=== PATIENT | male | born 1935 | race Caucasian/White ===

== ENCOUNTER 2017-12-12 08:12 | Inpatient (IN) ==
[2017-12-12] MEDS ORDERED: Sodium Chlor 0.9% Inj 500 ML IV.SIG PRN (08:45)
[2017-12-12] MEDS ORDERED: Chlorhexidine Gluconate 2% 1 Pack (2 Cloths) TOPICAL PRN (08:45)
[2017-12-12] MEDS ORDERED: Metoprolol Tartrate 25 MG Tablet PO PRN (08:45)
[2017-12-12] MEDS ORDERED: Vancomycin Inj 1,000 MG in Sodium Chlor 0.9% Inj 250 ML IV.SIG SCH (09:00)
[2017-12-12] MEDS ORDERED: Sod Chloride 0.9% Inj 1,000 ML IV.SIG SCH (09:00)
[2017-12-12] MEDS ORDERED: Thrombin Topical Soln 5,000 UNIT Vial TOPICAL ONE (09:56)
[2017-12-12] MEDS ORDERED: Gelatin Size 100 Topical Foam ONE (09:56)
[2017-12-12] MEDS ORDERED: Hypromellose 0.3% Opth Gel 10 GM Bottle ONE (10:10)
[2017-12-12] MEDS ORDERED: Ketamine Inj 500 MG/10 ML Vial ONE (10:11)
[2017-12-12] MEDS ORDERED: fentaNYL Citrate Inj 100 MCG/2 ML Ampul ONE ×2 (10:25→16:00)
[2017-12-12] MEDS ORDERED: Bisacodyl 10 MG Supp RECTAL PRN (11:02)
[2017-12-12] MEDS ORDERED: ceFAZolin 2 GM Premix Inj 2 GM/50 ML PIGGYBACK IV.SIG ONE (11:18)
--- NOTE | 2017-12-12 15:40 | XR ---
EXAM DATE: 12/12/2017 3:37 PM EDT AGE/SEX: 82 years / Male INDICATIONS: Cervical fusion, C3-4, 4-5, 5-6. CLINICAL DATA: This is the patient's initial encounter. Patient reports that signs and symptoms have been present for 1 day and indicates a pain score of Nonresponsive. MEDICAL/SURGICAL HISTORY: Non-responsive. Non-responsive. COMPARISON: No prior exams available for comparison. FINDINGS: There is anterior cervical fusion with a plate anteriorly from C3-C6. The vertebral bodies are normal in alignment on the lateral view. CONCLUSION: Postsurgical changes as above. Electronically signed by: Júnior Dover MD 12/12/2017 3:38 PM EDT
--- NOTE | 2017-12-12 16:14 | P.OP ---
Preoperative Diagnosis: Cervical stenosis with myelopathy Postoperative Diagnosis: Cervical stenosis with myelopathy Date of procedure: 12/12/17 Procedure: C3-4 C4-5 and C5-C6 anterior cervical discectomy, interbody arthrodesis using peek cage filled with autologous bone graft, C3 4, C4 5 C5-6 instrumented fixation using simplicity plate and screws Anesthesia: ARACELY Surgeon: Hakan Joyner MD Slip Maker: Deirdre Montenegro Pathology: none sent Operation and Findings: INDICATIONS FOR THE PROCEDURE Mr. 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 He was found to have significant spndylosis with stenosis. She has failed maximum nonsurgical management including multiple modalities of conservative treatment as well as pain management interventions by an interventional pain specialist. A surgical decompression and arthrodhesis were indicated. The qllt-zf-tish details of the procedure, indications, alternatives, risks and potential complications were fully discussed with the patient. The patient fully understood. All The questions were answered. No guarantees were given. The patient voiced requesting the procedure and provided informed consents. The patient was offered the alternative of delaying the procedure and continuing with nonsurgical management. DETAILS OF THE SURGICAL PROCEDURE After the induction of general anesthesia, endotracheal intubation was performed. A Mercedes catheter, bilateral LUIS hose, and sequential compression devices were placed and kept throughout the procedure. Placement of electrodes for neurophysiological monitoring of the somatosensorial evoked potentials. motor evoked potentials, and EMG as well as laryngeal nerve monitoring was achieved. The patient was positioned supine on a John table with the head over a gel doughnut. All pressure points were carefully padded with eggcrate mattress. The eyes were tapped shut after ointment was applied by the anesthesiologist to prevent corneal abrasion. A Michael hugger was placed over the exposed lower body to maintain control of the core body temperature. The electrophysiological team placed the needles and electrodes in their proper location and baseline SSEP's and motor evoked potentials were registered prior and after positioning and endotracheal intubation. The anterior cervical region was prepped and draped in the usual sterile fashion. A localizing x-ray was performed with a C-arm. The surgical procedure was performed in several steps as follow: SURGICAL APPROACH A skin incision was made along the medial cervical crease with a #10 blade. The dissection was carried out through the platysma exposing the sternocleidomastoid muscle. The cervical spine was approached following the fascial layers of the neck just medial to the anterior border of the sternocleidomastoid and carotid sheath by a combination of sharp and dull dissection. The omohyoid muscle was identified and carefully dissected laterally and the deep cervical fascia was carefully opened. The longus colli muscles were retracted to each side of the midline. A marker was placed at the disc space C4-5 and a cross-table lateral x-ray performed with a C-arm. SURGICAL DECOMPRESSION In order to decompress the anterior surface of the spinal cord it was necessary to preform a microsurgical resection of the disk at C3-4, C4-5 and C5-6. At this point in the procedure the operating microscope was draped in the usual sterile fashion and brought to the field. The rest of the surgical procedure was performed using microdissection technique with the exception of the closure. Under the operative microscopic, a self-retaining retractor was placed underneath the longus colli muscle. Anterior osteophitic spurs were carefully removed with the Leksell. The annulus at CC3-4, 4-5 and C5-6 were incised with a #15 blade and microdiscectomy was then carefully carried out using angled curets and pituitary forceps. There were osteophitic/disk complexes mass effect and compression of the dural sac and nerve roots. The posterior longitudinal ligament was then elevated with an angled curet and incised with a 15 bladed knife. A careful resection of the posterior longitudinal ligament was carried out using a thin footplate 2 mm Kerrison. A nerve hook was used to assess the epidural space behing the vertebral bodies C3, C4, C5 and C6 in search for residual disk fragments. The margins of the posterior endplates at C3-4, C4-5 and C5-6 were carefully drilled and undercut with a TPS drill under high magnification. The decompression was then carried out laterally, and a bilateral foraminotomy was performed with a 2mm thin foot Kerrison. Then the vertebral bodies above and below the disk space were undercut using a 2 mm thin foot Kerrison. The epidural space was the systematically assessed with a nerve hook in search for disk fragments or scar tissue. An excellent decompression was achieved in both, the dural sac and bilateral exiting nerve roots. The incision was then irrigated with a large amount of antibiotic solution INTERBODY ARTHRODHESIS In order to avoid collapse of the disk space which would result in bilateral foraminal stenosis, and to increase the chances of a successful fusion, it was necessary to place an interbody cage filled with autologous bone. At this point of the procedure, the superior and inferior endplates were then evenly decorticated with a TPS drill. The use of a drill in combination with a curette allowed me to systematically remove the cartilaginous endplates, exposing healthy bone for the interbody arthrodesis. Fourteen millimeters distraction pins were then placed at the vertebral bodies adjacent to the disk space, and gentle distraction was applied. The size of the interbody cage was then assessed using different size spacers, and a rasp was used to ensure no residual cartilage. A PEEK cage of the appropriate size was selected, and the interbody arthrodesis was then preformed by carefully impacting a PEEK cage filled with autologous bone graft to the disc spaces C3-4, C4-5 and C5-6. An excellent position of the cage was achieved. This was was confirmed anatomically by feeling the space posterior to the implant and distance to the anterior surface of the dural sac. Radiological confirmation of the position was performed with a cross lateral xray performed with the C-arm. INTERNAL INSTRUMENTAL FIXATION Once that the interbody device was in an appropriate position, it was necessary to stabilize the spine with anterior instrumentation. Anterior instrumentation has demonstrated to increase the rate of fusion, accelerate the patient's recovery, and decrease the rate of failed interbody grafts. At this point of the procedure, the distance between the vertebral bodies was carefully measures, and a Simplicity plate was brought to the field and presented in front of the vertebral bodies C3, C4, C5 and C6. Anesthetic Assistant holes were then drilled using the TPS drill, and the plate was then secured to the spine using self-drilling, self-tapping screws. Initially, the inferior right screw was inserted, followed by placement of the contralateral upper screw. The remanding screws were sequentially placed in a contra-lateral fashion. A proper purchase was achieved with all screws and the position of the cage, plate and screws, and alignment of the spine was assessed anatomically by direct visualization, and radiologically by performing a cross lateral xray of the cervical spine with the C-arm. CLOSURE The incision was irrigated with several liters of antibiotic solution. Hemostasis was achieved with a bipolar. The screws were locked to prevent backing out. A 7 mm John-Grimaldo drain was left in the prevertebral space and externalized through a separate stab incision. The incision was then closed in layers. 3-0 Vicryl with interrupted sutures was used to close the platysma and subcutaneous tissue. The skin was closed with 4-0 running subcuticular Vicryl and glue was applied to the skin. The drain was secured with a 3-0 nylon. At the end of the procedure the sponge, needle and instrument counts were all correct. The estimated blood loss was less than 200 cc. No blood transfusion was given. No intraoperative complications occurred. The patient received prophylactic antibiotics. The patient was then extubated and transferred to the recovery room in stable condition.
[2017-12-12] MEDS ORDERED: Sodium Chlor 0.9% Inj 250 ML IV.SIG ONE (16:59)
[2017-12-12] MEDS ORDERED: Sodium Chlor 0.9% Inj 500 ML IV.SIG ONE (16:59)
[2017-12-12] MEDS ORDERED: Lidocaine PF 1% Inj 5 ML Syringe INFILTRATN ONE (16:59)
[2017-12-12] MEDS ORDERED: Phenylephrine/NS 1000 MCG/10ML Syringe IV.PUSH ONE (16:59)
[2017-12-12] MEDS ORDERED: Acetaminophen 325 MG Tablet PO PRN (17:43)
--- NOTE | 2017-12-12 17:44 | P.CONCC ---
History of Present Illness Service: Critical Care Medicine Consult date: 12/12/17 Requesting Physician: Hakan Alcocer Reason for Consult: management of comorbid medical conditions Primary Care Provider: Gamaliel Guerra DO History of Present Illness: This is an 82-year-old male with a history of COPD as well as significant EtOH use who presents for elective ACDF C3-6. He underwent uncomplicated procedure. He arrives to the ICU extubated in stable condition. Patient denies complaints. Patient is moving all 4 extremities with equal strength. Patient is still arousing from anesthesia and is somewhat somnolent. Brief review of systems is negative for chest pain, shortness of breath, nausea, vomiting, headache, sore throat. Review of Systems All other systems reviewed negative except as stated in HPI PMFSH - History History Provided By: Patient, Medical Record - Medical History Medical History: Medical History (Last Updated 12/12/17 @ 09:17 by Sharee Sol RN) GERD (gastroesophageal reflux disease) Hiatal hernia COPD (chronic obstructive pulmonary disease) Cervical spondylosis Dental bridge present Diminished hearing Far-sighted Heartburn Herniated cervical disc High cholesterol History of blood product transfusion Hx deployment Neck pain Osteoporosis Shingles rash Urinary incontinence - Surgical History Surgical History: Surgical History (Last Updated 12/12/17 @ 09:17 by Sharee Sol RN) H/O oral surgery H/O sternectomy History of appendectomy History of splenectomy - Tobacco History Second Hand Smoke Exposure: No Tobacco Use In Past 30 Days: No Smoking Status: Former smoker - Alcohol History How Often Do You Have a Drink Containing Alcohol: 4 or more times a week - Substance Use History Substance History: No History of Abuse - Travel History Recent Travel in the [place] Within the Last 8 Weeks: Yes Recent Travel Out of the Country Within the Last 8 Weeks: No Medications and Allergies Active Medications: Active Medications Hydrocodone Bitart/Acetaminophen ([place] 10/325) 2 tab PO Q4H PRN PRN Reason: PAIN SCALE 6 TO 10 Al Hydroxide/Mg Hydroxide (Milk Of Magnesia Liq) 30 ml PO Q12H PRN PRN Reason: Mild Constipation Atorvastatin Calcium (Lipitor) 10 mg PO MoWeFr KATHRYN Bisacodyl (Dulcolax Supp) 10 mg RECTAL DAILY PRN PRN Reason: SEVERE CONSITIPATION Chlorhexidine Gluconate (Chlorhexidine 2% Cloth) 3 pack TOPICAL HAND PRINTED [employer]ARD ASSEMBLER PRN PRN Reason: SEE LABEL COMMENTS Stop: 12/15/17 08:44 Last Admin: 12/12/17 08:45 Dose: 3 pack Cyclobenzaprine HCl (Flexeril) 10 mg PO Q8H PRN PRN Reason: MUSCLE SPASM Dexamethasone Sodium Phosphate (Decadron Inj) 4 mg IV.PUSH Q6H KATHRYN Ezetimibe (Zetia) 10 mg PO DAILY KATHRYN Lactated Ringer's (Lr 1000 Ml Inj) 1,000 mls @ 30 mls/hr IV.SIG .Q24H PRN PRN Reason: SEE LABEL COMMENTS Last Infusion: 12/12/17 12:30 Dose: Infused Sodium Chloride (Ns Inj) 500 mls @ 30 mls/hr IV.SIG .[id number] PRN PRN Reason: SEE LABEL COMMENTS Sodium Chloride (Ns Inj) 1,000 mls @ 30 mls/hr IV.SIG .Q24H KATHRYN Vancomycin HCl 1,000 mg/ (Sodium Chloride) 250 mls @ 250 mls/hr IV.SIG HAND PRINTED CIRCUIT [employer]ARD ASSEMBLER KATHRYN Stop: 12/15/17 08:59 Cefazolin/Sodium Chloride (Ancef 2 Gm Premix Inj) 2 gm in 100 mls @ 200 mls/hr IV.SIG Q8H KATHRYN Stop: 12/13/17 11:29 Potassium Chloride/Sodium Chloride (Ns + Kcl 20 Meq Inj) 1,000 mls @ 100 mls/ hr IV.CONT .Q10H KATHRYN Lactulose (Lactulose Liq) 30 ml PO DAILY PRN PRN Reason: SEVERE CONSITIPATION Metoprolol Tartrate (Lopressor) 25 mg PO HAND PRINTED [employer]ARD ASSEMBLER PRN PRN Reason: SEE LABEL COMMENTS Stop: 12/15/17 08:44 Miscellaneous Information (Mis Nursing Information) 1 each OTHER UNSCH PRN PRN Reason: SEE LABEL COMMENTS Stop: 12/13/17 15:49 Pantoprazole Sodium (Protonix) 40 mg PO DAILY [facility] Povidone Iodine (Betadine 5% Antisepsis Kit) 1 applicatio EACH NARE HAND PRINTED CIRCUIT [employer]ARD ASSEMBLER PRN PRN Reason: SEE LABEL COMMENTS Stop: 12/15/17 08:44 Last Admin: 12/12/17 09:35 Dose: 1 applicatio Senna/Docusate Sodium (Edith-Colace) 1 tab PO BID [facility] Sennosides (Senokot) 17.2 mg PO Q12H PRN PRN Reason: Moderate Constipation Tamsulosin HCl (Flomax) 0.4 mg PO HS [facility] Umeclidinium/Vilanterol (Anoro-Ellipta 62.5/25 Mcg Inh) 1 puff INH Q24H KATHRYN Vitamin D (Vitamin D3) 1,000 unit PO DAILY KATHRYN Allergies Allergy/AdvReac Type Severity Reaction Status Date / Time amoxicillin Allergy Lethargy Verified 12/12/17 09:08 morphine Allergy Hallucinati Verified 12/12/17 09:13 ons Sulfa (Sulfonamide Allergy Lethargy Verified 12/12/17 09:08 Antibiotics) Home Medications Medication Instructions Recorded Confirmed Type aspirin [Aspirin Low Dose] 81 mg PO DAILY 11/28/17 11/28/17 History atorvastatin 10 mg PO 3XW 11/28/17 12/12/17 History cholecalciferol (vitamin D3) 1,000 unit PO DAILY 11/28/17 12/12/17 History [Vitamin D3] ezetimibe 10 mg PO DAILY 11/28/17 12/12/17 History tamsulosin [Flomax] 0.4 mg PO HS 11/28/17 12/12/17 History umeclidinium-vilanterol [Anoro 1 inh INHALATION Q24H 11/28/17 12/12/17 History Ellipta] Physical Exam Vital signs: Vital Signs 12/12/17 09:00 Temperature 36.6 C Pulse Rate 72 Respiratory Rate 20 Blood Pressure 142/74 H Pulse Oximetry 95 Intake & Output 12/11/17 12/12/17 12/12/17 18:59 06:59 18:59 Intake Total 2500 / 2500 Output Total 650 / 650 Balance 1850 / 1850 Weight 87 kg Intake: IV 1000 / 1000 LR 1000 mL Inj 1,000 ML @ 30 1000 / 1000 mls/hr IV.SIG .Q24H PRN Rx#: [id number] Anesthesia Amount 1500 / 1500 Output: Estimated Blood Loss 650 / 650 Other: Weight On Admission 87 kg Narrative: GENERAL: Elderly male, lying in bed, arousing from anesthesia HEENT: Normocephalic. Atraumatic. Pupils equal, round, reactive, conjugate. Mucous membranes are moist NECK: Trachea is midline. There is no JVD. C-collar in place. LALIT drains exit the anterior neck with minimal amount of sanguinous output. CHEST: Simple facemask oxygen. SPO2 91%. Vigorous cough. Unlabored. CARDIOVASCULAR: Normal rate, regular rhythm. Sinus. ABDOMEN: Soft, nontender, nondistended. No guarding. MUSCULOSKELETAL: Pulses 2+. No peripheral edema. NEUROLOGICAL: RASS -1. Arousing from anesthesia. Moves all extremities. No focal deficits. Musculoskeletal strength 5/5 in all 4 extremities. Sensation grossly intact. - Urinary Catheter Management Indwelling Urethral Catheter Cath placed during this visit: yes Reason for continuing: Hourly intake/output Insertion date: 12/12/17 Insertion time: 11:00 Assessment and Plan - Assessment and Plan Plan: Assessment: 82-year-old male postop day 0 status post C3-6 ACDF. Certainly will need aggressive pulmonary toilet and as needed nebs for his COPD. Dr. Alcocer expressed concern over his baseline liver function given his strong alcohol history. Will check baseline LFTs and trend daily. Likely safe for short courses of as needed acetaminophen for adjuvant pain control, unless his LFTs are up trending. Frequent neuro checks and close monitoring in ICU. s/p C3-6 ACDF frequent neuro checks post-op pain control per Dr. alcocer likely safe for short course of acetaminophen COPD nebs wean o2 to keep spo2 > 88% aggressive pulmonary toilet significant chronic etoh use watch for signs of withdraw will not use CIWA so as not to over-sedate and prevent accurate neuro exam send LFTs trend daily LFTs. SCDs advance diet per neurosurgery. Critical care will follow along.
[2017-12-12] MEDS: Umeclindinium 62.5 MCG/Vilanterol 25 MCG Inhaler INH SCH (18:36)
[2017-12-12 18:38] LABS: Hematocrit 41.9 % (39.0-51.0); Hemoglobin 14.3 gm/dL (13.0-17.0); Mean Corpuscular HGB Conc 34.1 % (32.0-36.0); Mean Corpuscular Hemoglobin 35.3 pg (27.0-34.0); Mean Corpuscular Volume 103.6 fL (80.0-100.0); Mean Platelet Volume 7.4 fL (7.0-11.0); Platelet Count 364 th/mm3 (150-450); Red Blood Count 4.05 mil/mm3 (4.50-5.90); White Blood Count 18.2 th/mm3 (4.0-11.0)
[2017-12-12 18:57] LABS: Albumin 3.6 g/dL (3.4-5.0); Anion Gap 9 meq/L (5-15); Aspartate Aminotransferase 25 U/L (15-37); Blood Urea Nitrogen 13 mg/dL (7-18); Calcium 8.5 mg/dL (8.5-10.1); Carbon Dioxide 22.7 meq/L (21.0-32.0); Chloride 106 meq/L (98-107); Glomerular Filtration Rate 82 mL/min (>89); Glucose,Random 141 mg/dL (74-106); Potassium 4.2 meq/L (3.5-5.1); Sodium 138 meq/L (136-145)
[2017-12-12 18:59] LABS: Alanine Aminotransferase 26 U/L (12-78)
[2017-12-12 19:00] LABS: Alkaline Phosphatase 52 U/L (45-117); Total Protein 7.1 g/dL (6.4-8.2)
[2017-12-12] MEDS ORDERED: ceFAZolin 2 GM Premix Inj 2 GM/100 ML BAG IV.SIG SCH (19:00)
[2017-12-12] MEDS: ceFAZolin Inj 2,000 MG in Sodium Chlor 0.9% Inj 80 ML IV.SIG SCH (20:23)
[2017-12-12] MEDS: Senna/Docusate Sodium 8.6/50 MG Tablet PO SCH (20:24)
[2017-12-13] MEDS: ceFAZolin Inj 2,000 MG in Sodium Chlor 0.9% Inj 80 ML IV.SIG SCH ×2 (04:13→14:43)
[2017-12-13 04:43] LABS: Hematocrit 38.2 % (39.0-51.0); Mean Corpuscular HGB Conc 33.9 % (32.0-36.0); Mean Corpuscular Hemoglobin 34.9 pg (27.0-34.0); Mean Corpuscular Volume 102.8 fL (80.0-100.0); Mean Platelet Volume 7.3 fL (7.0-11.0); Platelet Count 349 th/mm3 (150-450); Red Blood Count 3.72 mil/mm3 (4.50-5.90); Red Cell Distribution Width 13.7 % (11.6-17.2); White Blood Count 9.8 th/mm3 (4.0-11.0)
[2017-12-13 04:47] LABS: Prothrombin Time 10.3 sec (9.8-11.6)
[2017-12-13 04:55] LABS: Albumin 3.3 g/dL (3.4-5.0); Anion Gap 10 meq/L (5-15); Aspartate Aminotransferase 23 U/L (15-37); Blood Urea Nitrogen 12 mg/dL (7-18); Calcium 8.1 mg/dL (8.5-10.1); Carbon Dioxide 23.4 meq/L (21.0-32.0); Chloride 107 meq/L (98-107); Glomerular Filtration Rate 73 mL/min (>89); Glucose,Random 144 mg/dL (74-106); Potassium 4.3 meq/L (3.5-5.1); Sodium 140 meq/L (136-145)
[2017-12-13 04:56] LABS: Alanine Aminotransferase 24 U/L (12-78)
[2017-12-13 04:58] LABS: Alkaline Phosphatase 46 U/L (45-117); Total Protein 6.6 g/dL (6.4-8.2)
--- NOTE | 2017-12-13 08:22 | P.PNCC ---
Subjective Subjective Remarks/Hospital Course: Hospital Course: This is an 82-year-old male with a history of COPD as well as significant EtOH use who presents for elective ACDF C3-6. He underwent uncomplicated procedure. He arrives to the ICU extubated in stable condition. Patient denies complaints. Patient is moving all 4 extremities with equal strength. Patient is still arousing from anesthesia and is somewhat somnolent. Brief review of systems is negative for chest pain, shortness of breath, nausea, vomiting, headache, sore throat. Subjective: 12/13: slightly anxious this AM. oxygen levels stable. nc o2. Objective Vital Signs / I&O: Vital Signs 12/12/17 09:00 12/12/17 15:50 12/12/17 16:00 Temperature 36.6 C 36.6 C Pulse Rate 72 102 H 101 H Respiratory Rate 20 14 17 Blood Pressure 142/74 H 166/91 H 166/82 H Pulse Oximetry 95 90 L 93 L 12/12/17 16:15 12/12/17 16:30 12/12/17 18:00 Temperature 36.8 C 36.6 C Pulse Rate 97 H 98 H 100 H Respiratory Rate 15 17 13 Blood Pressure 152/90 H 155/90 H 151/86 H Pulse Oximetry 94 L 91 L 93 L 12/12/17 19:00 12/12/17 19:15 12/12/17 19:52 Temperature Pulse Rate 100 H 99 H Respiratory Rate 16 18 Blood Pressure 139/68 Pulse Oximetry 91 L 91 L 92 L 12/12/17 20:00 12/12/17 20:23 12/12/17 21:00 Temperature 36.3 C L Pulse Rate 96 H 103 H Respiratory Rate 16 22 13 Blood Pressure 154/87 H 161/72 H Pulse Oximetry 91 L 89 L 12/12/17 21:16 12/12/17 22:00 12/12/17 23:00 Temperature Pulse Rate 92 H 95 H Respiratory Rate 16 12 19 Blood Pressure 108/57 L 114/60 Pulse Oximetry 91 L 92 L 12/12/17 23:35 12/13/17 00:00 12/13/17 03:30 Temperature 36.5 C Pulse Rate 101 H 90 88 Respiratory Rate 18 12 Blood Pressure 115/78 Pulse Oximetry 92 L 12/13/17 04:00 12/13/17 08:03 Temperature Pulse Rate 75 84 Respiratory Rate 13 22 Blood Pressure 116/60 Pulse Oximetry 94 L 92 L Intake & Output 12/12/17 12/13/17 12/13/17 18:59 06:59 18:59 Intake Total 2650 / 2650 2019 Output Total 1270 / 1270 1850 / 1850 Balance 1380 / 1380 170 / 170 Weight 87 kg 90.6 kg Intake: IV 1150 / 1150 1300 / 1300 NS + KCl 20 mEq Inj 1,000 ML @ 1000 / 1000 100 mls/hr IV.CONT .Q10H KATHRYN Rx #:[id number] Ofirmev Inj 1,000 mg In 100 ml 100 / 100 100 / 100 @ 400 mls/hr IV.SIG Q6H PRN Rx# :[id number] LR 1000 mL Inj 1,000 ML @ 30 1000 / 1000 mls/hr IV.SIG .Q24H PRN Rx#: [id number] Ancef 2 GM Premix Inj 2 gm In 50 / 50 50 ml @ 0 mls/hr IV.SIG .STK- MED ONE Rx#:[id number] Ancef Inj 2,000 MG In NS Inj 80 200 / 200 ML @ 200 mls/hr IV.SIG Q8H KATHRYN Rx#:[id number] Oral 720 / 720 Anesthesia Amount 1500 / 1500 Output: Estimated Blood Loss 650 / 650 Urine Amount (Catheter) 600 / 600 1850 / 1850 Indwelling Urethral Catheter 600 / 600 1850 / 1850 Wound Drainage 20 / 20 Neck 20 / 20 Other: # Bowel Movements 0 Weight On Admission 87 kg Result Diagrams: 12/13/17 04:15 12/13/17 04:15 Objective Remarks: GENERAL: Elderly male, lying in bed, no acute distress. HEENT: Normocephalic. Atraumatic. Pupils equal, round, reactive, conjugate. Mucous membranes are moist NECK: Trachea is midline. There is no JVD. C-collar in place. LALIT drains exit the anterior neck with minimal amount of sanguinous output. CHEST: nc o2. SPO2 92%. Vigorous cough. Unlabored. CARDIOVASCULAR: Normal rate, regular rhythm. Sinus. ABDOMEN: Soft, nontender, nondistended. No guarding. MUSCULOSKELETAL: Pulses 2+. No peripheral edema. NEUROLOGICAL: RASS 0. Moves all extremities. No focal deficits. Musculoskeletal strength 5/5 in all 4 extremities. Sensation grossly intact. Assessment and Plan - Assessment and Plan Plan: Assessment: 82-year-old male postop day 1 status post C3-6 ACDF. Certainly will need aggressive pulmonary toilet and as needed nebs for his COPD. LFTs stable. will add thiamine and benzos to prevent withdraw symptoms. s/p C3-6 ACDF frequent neuro checks post-op pain control per Dr. alcocer continue prn tylenol. COPD nebs wean o2 to keep spo2 > 88% aggressive pulmonary toilet significant chronic etoh use start valium 10mg po q8h ativan 1mg iv q2h prn for agitation or withdraw symptoms iv thiamine x 3 days, then po thiamine. will not use CIWA so as not to over-sedate and prevent accurate neuro exam trend daily LFTs- have been stable. SCDs advance diet per neurosurgery. Critical care will follow along while patient is in ICU.
[2017-12-13] MEDS: Ezetimibe 10 MG Tablet PO SCH (08:40)
[2017-12-13] MEDS: Senna/Docusate Sodium 8.6/50 MG Tablet PO SCH ×2 (08:40→20:03)
[2017-12-13] MEDS: Thiamine Inj 500 MG in Sodium Chlor 0.9% Inj 250 ML IV.SIG SCH ×2 (09:24→16:49)
--- NOTE | 2017-12-13 10:38 | P.PNNS ---
Subjective Interval history: Mr. Motta is a 82 year old male s/p C3-4 C4-5 and C5-C6 anterior cervical discectomy, interbody arthrodesis using peek cage filled with autologous bone graft, C3 4, C4 5 C5-6 instrumented fixation using simplicity plate and screws for Cervical stenosis with myelopathy on 12/12/17. He was admitted to surgical ICU with critical care consultation due to his history of severe COPD. 12/13: doing well this am, c/o sore throat, no arm pain but reports of numbness and tingling. surgical pain controlled. Physical Exam Vital signs: Vital Signs 12/12/17 15:50 12/12/17 16:00 12/12/17 16:15 Temperature 97.8 F Pulse Rate 102 H 101 H 97 H Respiratory Rate 14 17 15 Blood Pressure 166/91 H 166/82 H 152/90 H Pulse Oximetry 90 L 93 L 94 L 12/12/17 16:30 12/12/17 18:00 12/12/17 19:00 Temperature 98.2 F 98 F Pulse Rate 98 H 100 H 100 H Respiratory Rate 17 13 16 Blood Pressure 155/90 H 151/86 H 139/68 Pulse Oximetry 91 L 93 L 91 L 12/12/17 19:15 12/12/17 19:52 12/12/17 20:00 Temperature 97.4 F L Pulse Rate 99 H 96 H Respiratory Rate 18 16 Blood Pressure 154/87 H Pulse Oximetry 91 L 92 L 91 L 12/12/17 20:23 12/12/17 21:00 12/12/17 21:16 Temperature Pulse Rate 103 H Respiratory Rate 22 13 16 Blood Pressure 161/72 H Pulse Oximetry 89 L 12/12/17 22:00 12/12/17 23:00 12/12/17 23:35 Temperature Pulse Rate 92 H 95 H 101 H Respiratory Rate 12 19 18 Blood Pressure 108/57 L 114/60 Pulse Oximetry 91 L 92 L 12/13/17 00:00 12/13/17 03:30 12/13/17 04:00 Temperature 97.7 F Pulse Rate 90 88 75 Respiratory Rate 12 13 Blood Pressure 115/78 116/60 Pulse Oximetry 92 L 94 L 12/13/17 08:03 Temperature Pulse Rate 84 Respiratory Rate 22 Blood Pressure Pulse Oximetry 92 L Intake & Output 08/2912/13/17 12/13/17 18:59 06:59 18:59 Intake Total 2650 / 2650 2019 / 2019 Output Total 1270 / 1270 1850 / 1850 Balance 1380 / 1380 170 / 170 Weight 87 kg 90.6 kg Intake: IV 1150 / 1150 1300 / 1300 NS + KCl 20 mEq Inj 1,000 ML @ 1000 / 1000 100 mls/hr IV.CONT .Q10H KATHRYN Rx #:[id number] Ofirmev Inj 1,000 mg In 100 ml 100 / 100 100 / 100 @ 400 mls/hr IV.SIG Q6H PRN Rx# :[id number] LR 1000 mL Inj 1,000 ML @ 30 1000 / 1000 mls/hr IV.SIG .Q24H PRN Rx#: [id number] Ancef 2 GM Premix Inj 2 gm In 50 / 50 50 ml @ 0 mls/hr IV.SIG .STK- MED ONE Rx#:[id number] Ancef Inj 2,000 MG In NS Inj 80 200 / 200 ML @ 200 mls/hr IV.SIG Q8H KATHRYN Rx#:[id number] Oral 720 / 720 Anesthesia Amount 1500 / 1500 Output: Estimated Blood Loss 650 / 650 Urine Amount (Catheter) 600 / 600 1850 / 1850 Indwelling Urethral Catheter 600 / 600 1850 / 1850 Wound Drainage 20 / 20 Neck 20 / 20 Other: # Bowel Movements 0 Weight On Admission 87 kg Narrative: awake, alert voice is hoarse LALIT drain in place wound with clean and dry optifoam dressing neck supported by rampart j collar moving all major muscle groups of upper and lower extremities well - Urinary Catheter Management Indwelling Urethral Catheter Cath placed during this visit: yes Reason for continuing: Hourly intake/output Insertion date: 12/12/17 Insertion time: 11:00 Assessment and Plan - Plan Impression: 82 y/o male s/p ACDF COPD etoh abuse Plan: cont postoperative care PT, OT, ST appreciate critical care assistance thiamine, MV, FA for etoh withdrawal prophylaxis, [facility] scds and teds, protonix Incentive spirometry
--- NOTE | 2017-12-13 11:48 | P.DIET ---
Nutritional Evaluation Screening comments: Geriatric Surgical Screen: Pt is s/p cervical spine surgery on (12/12) and is now on a Regular diet with a BMI of 29.2. He is currently not at high nutrition risk. Consult RD if needed.
[2017-12-13] MEDS: Folic Acid 1 MG Tablet PO SCH (14:43)
[2017-12-13] MEDS: Umeclindinium 62.5 MCG/Vilanterol 25 MCG Inhaler INH SCH (17:24)
[2017-12-14] MEDS: Thiamine Inj 500 MG in Sodium Chlor 0.9% Inj 250 ML IV.SIG SCH ×2 (00:25→09:08)
[2017-12-14 04:12] LABS: Hematocrit 39.4 % (39.0-51.0); Hemoglobin 12.7 gm/dL (13.0-17.0); Mean Corpuscular HGB Conc 32.3 % (32.0-36.0); Mean Corpuscular Hemoglobin 34.3 pg (27.0-34.0); Mean Corpuscular Volume 106.3 fL (80.0-100.0); Mean Platelet Volume 8.6 fL (7.0-11.0); Platelet Count 298 th/mm3 (150-450); Red Blood Count 3.71 mil/mm3 (4.50-5.90); Red Cell Distribution Width 14.5 % (11.6-17.2); White Blood Count 19.1 th/mm3 (4.0-11.0)
[2017-12-14 04:44] LABS: Alanine Aminotransferase 17 U/L (12-78); Albumin 3.3 g/dL (3.4-5.0); Alkaline Phosphatase 38 U/L (45-117); Anion Gap 5 meq/L (5-15); Aspartate Aminotransferase 16 U/L (15-37); Blood Urea Nitrogen 17 mg/dL (7-18); Calcium 8.9 mg/dL (8.5-10.1); Carbon Dioxide 28.6 meq/L (21.0-32.0); Chloride 108 meq/L (98-107); Glomerular Filtration Rate 85 mL/min (>89); Glucose,Random 121 mg/dL (74-106); Potassium 4.7 meq/L (3.5-5.1); Sodium 142 meq/L (136-145); Total Protein 6.7 g/dL (6.4-8.2)
[2017-12-14] MEDS: Ezetimibe 10 MG Tablet PO SCH (09:08)
[2017-12-14] MEDS: Folic Acid 1 MG Tablet PO SCH (09:08)
[2017-12-14] MEDS: Senna/Docusate Sodium 8.6/50 MG Tablet PO SCH (09:08)
--- NOTE | 2017-12-14 10:02 | P.PNNS ---
Subjective Interval history: 12/14: doing well, no acute events overnight. Physical Exam Vital signs: Vital Signs 12/13/17 11:00 12/13/17 11:37 12/13/17 12:00 Temperature 97.9 F Pulse Rate 72 84 96 H Respiratory Rate 24 38 H Blood Pressure 110/56 L Pulse Oximetry 93 L 12/13/17 15:00 12/13/17 15:34 12/13/17 16:00 Temperature 98.1 F Pulse Rate 66 92 H 86 Respiratory Rate 24 25 H Blood Pressure 104/72 Pulse Oximetry 92 L 12/13/17 19:00 12/13/17 20:00 12/13/17 20:03 Temperature 98.0 F Pulse Rate 83 Respiratory Rate 19 22 Blood Pressure 119/66 Pulse Oximetry 96 96 12/13/17 20:17 12/13/17 20:33 12/13/17 23:58 Temperature Pulse Rate 77 79 Respiratory Rate 20 12 18 Blood Pressure Pulse Oximetry 97 12/14/17 00:00 12/14/17 04:00 12/14/17 04:17 Temperature 98.5 F Pulse Rate 95 H 90 87 Respiratory Rate 21 21 20 Blood Pressure 135/75 143/80 H Pulse Oximetry 95 92 L 12/14/17 08:04 Temperature Pulse Rate 76 Respiratory Rate 24 Blood Pressure Pulse Oximetry 93 L Intake & Output 12/13/17 12/14/17 12/14/17 18:59 06:59 18:59 Intake Total 2455 / 2455 2335 / 2335 Output Total 790 / 790 2024 Balance 1665 / 1665 310 / 310 Weight 87 kg 89 kg Intake: IV 1255 / 1255 1855 / 1855 NS + KCl 20 mEq Inj 1,000 ML @ 1000 / 1000 1600 / 1600 100 mls/hr IV.CONT .Q10H KATHRYN Rx #:[id number] Thiamine Inj 500 MG In NS Inj 255 / 255 255 / 255 250 ML @ 62.5 mls/hr IV.SIG Q8H KATHRYN Rx#:[id number] Oral 1200 / 1200 480 / 480 Output: Urine 500 / 500 2024 Urine Amount (Catheter) 250 / 250 Indwelling Urethral Catheter 250 / 250 Wound Drainage 40 / 40 Neck 40 / 40 Other: # Voids 1 4 Date of Last Bowel Movement 12/12/17 # Bowel Movements 0 0 Narrative: awake, alert LALIT drain in place wound with clean and dry optifoam dressing neck supported by three affiliated j collar moving all major muscle groups of upper and lower extremities well - Urinary Catheter Management Indwelling Urethral Catheter Cath placed during this visit: yes Reason for continuing: Hourly intake/output Insertion date: 12/12/17 Insertion time: 11:00 Assessment and Plan - Plan Impression: 82 y/o male s/p ACDF COPD etoh abuse Plan: cont postoperative care PT, OT, ST appreciate critical care assistance thiamine, MV, FA for etoh withdrawal prophylaxis, [facility] scds and teds, protonix Incentive spirometry dc [facility] when cleared critical care
--- NOTE | 2017-12-14 12:22 | P.PNCC ---
Subjective Subjective Remarks/Hospital Course: Hospital Course: This is an 82-year-old male with a history of COPD as well as significant EtOH use who presents for elective ACDF C3-6. He underwent uncomplicated procedure. He arrives to the ICU extubated in stable condition. Patient denies complaints. Patient is moving all 4 extremities with equal strength. Patient is still arousing from anesthesia and is somewhat somnolent. Brief review of systems is negative for chest pain, shortness of breath, nausea, vomiting, headache, sore throat. Subjective: 12/13: slightly anxious this AM. oxygen levels stable. nc o2. 12/14: awake, alert, sitting in a chair. failed swallow eval. likely post- operative edema which will resolve in next few days. Objective Vital Signs / I&O: Vital Signs 12/13/17 15:00 12/13/17 15:34 12/13/17 16:00 Temperature 36.7 C Pulse Rate 66 92 H 86 Respiratory Rate 24 25 H Blood Pressure 104/72 Pulse Oximetry 92 L 12/13/17 19:00 12/13/17 20:00 12/13/17 20:03 Temperature 36.7 C Pulse Rate 83 Respiratory Rate 19 22 Blood Pressure 119/66 Pulse Oximetry 96 96 12/13/17 20:17 12/13/17 20:33 12/13/17 23:58 Temperature Pulse Rate 77 79 Respiratory Rate 20 12 18 Blood Pressure Pulse Oximetry 97 12/14/17 00:00 12/14/17 04:00 12/14/17 04:17 Temperature 36.9 C Pulse Rate 95 H 90 87 Respiratory Rate 21 21 20 Blood Pressure 135/75 143/80 H Pulse Oximetry 95 92 L 12/14/17 08:04 12/14/17 11:13 Temperature Pulse Rate 76 80 Respiratory Rate 24 22 Blood Pressure Pulse Oximetry 93 L Intake & Output 12/13/17 12/14/17 12/14/17 18:59 06:59 18:59 Intake Total 2455 / 2455 2335 / 2335 Output Total 790 / 790 2024 / 2024 Balance 1665 / 1665 310 / 310 Weight 87 kg 89 kg Intake: IV 1255 / 1255 1855 / 1855 NS + KCl 20 mEq Inj 1,000 ML @ 1000 / 1000 1600 / 1600 100 mls/hr IV.CONT .Q10H KATHRYN Rx #:[id number] Thiamine Inj 500 MG In NS Inj 255 / 255 255 / 255 250 ML @ 62.5 mls/hr IV.SIG Q8H KATHRYN Rx#:[id number] Oral 1200 / 1200 480 / 480 Output: Urine 500 / 500 2024 Urine Amount (Catheter) 250 / 250 Indwelling Urethral Catheter 250 / 250 Wound Drainage 40 / 40 Neck 40 / 40 Other: # Voids 1 4 Date of Last Bowel Movement 12/12/17 # Bowel Movements 0 0 Result Diagrams: 12/14/17 02:45 12/14/17 02:45 Objective Remarks: GENERAL: Elderly male, sitting in chair, no acute distress. HEENT: Normocephalic. Atraumatic. Pupils equal, round, reactive, conjugate. Mucous membranes are moist NECK: Trachea is midline. There is no JVD. C-collar in place. LALIT drains exit the anterior neck with minimal amount of sanguinous output. CHEST: nc o2. Vigorous cough. Unlabored. CARDIOVASCULAR: Normal rate, regular rhythm. Sinus. ABDOMEN: Soft, nontender, nondistended. No guarding. MUSCULOSKELETAL: Pulses 2+. No peripheral edema. NEUROLOGICAL: RASS 0. Moves all extremities. No focal deficits. Musculoskeletal strength 5/5 in all 4 extremities. Sensation grossly intact. Assessment and Plan - Assessment and Plan Plan: Assessment: 82-year-old male postop day 1 status post C3-6 ACDF. Certainly will need aggressive pulmonary toilet and as needed nebs for his COPD. LFTs stable. will add thiamine and benzos to prevent withdraw symptoms. s/p C3-6 ACDF frequent neuro checks post-op pain control per Dr. alcocer continue prn tylenol. Acute dysphagia - speech consult for swallow eval - video swallow study - place DHT if patient fails video swallow to continue to provide adequate nutrition while patient heals, until he can pass swallow eval. COPD nebs wean o2 to keep spo2 > 88% aggressive pulmonary toilet significant chronic etoh use Alcohol dependence with impending withdraw syndrome start slow valium taper. ativan 1mg iv q2h prn for agitation or withdraw symptoms iv thiamine x 3 days, then po thiamine. will not use CIWA so as not to over-sedate and prevent accurate neuro exam trend daily LFTs- have been stable. SCDs From my standpoint, patient is cleared to leave ICU to floor or to inpatient rehab. Critical care medicine will sign off. please re-consult as needed.
--- NOTE | 2017-12-14 14:00 | FL ---
EXAM DATE: 12/14/2017 1:53 PM EDT AGE/SEX: 82 years / Male INDICATIONS: Dysphagia since anterior cervical fusion 3 days ago CLINICAL DATA: This is the patient's subsequent encounter. Patient reports that signs and symptoms h ave been present for 3 days and indicates a pain score of 0/10. MEDICAL/SURGICAL HISTORY: None. . anterior cervical fusion COMPARISON: No prior exams available for comparison. FLUORO TIME: 1.4 IMAGE COUNT: 0 FINDINGS: A modified barium swallow was performed with speech pathology. Patient was given a variety of liquids to swallow. For a full detailed report, see report by the speech pathologist. CONCLUSION: Negative examination. Electronically signed by: Barron Valle MD 12/14/2017 1:58 PM EDT
--- NOTE | 2017-12-14 14:37 | P.DS ---
Date of admission: 12/12/17 15:46 Primary care physician: Gamaliel Guerra DO Brief History from admission: Mr. 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 He was found to have significant spndylosis with stenosis. She has failed maximum nonsurgical management including multiple modalities of conservative treatment as well as pain management interventions by an interventional pain specialist. A surgical decompression and arthrodhesis were indicated. DS: Medications - Discharge Medications Prescriptions: hydrocodone-acetaminophen 1 tab PO Q4H PRN 3 Days #15 tab PRN Reason: Pain Scale 6 To 10 DS: Summary Hospital Course: Mr. Motta underwent a C3-4 C4-5 and C5-C6 anterior cervical discectomy, interbody arthrodesis using peek cage filled with autologous bone graft, C3 4, C4 5 C5-6 instrumented fixation using simplicity plate and screws Cervical stenosis with myelopathy on 12/12/17. He was admitted to the intensive care unit with critical care evaluation due to his history of COPD. He has done well and has been stable. He underwent swallow evaluation. He has been cleared by critical care for discharge to rehab. He has been accepted to [place] inpatient rehab and will be discharged in stable conditions. - Time Spent with Patient Total time spent providing and/or coordinating discharge services: Less than 30 minutes - Quality: VTE Deep Vein Thrombosis/Pulmonary Embolism Present on Admission: No Exam Vital signs: Vital Signs 12/13/17 15:00 12/13/17 15:34 12/13/17 16:00 Temperature 98.1 F Pulse Rate 66 92 H 86 Respiratory Rate 24 25 H Blood Pressure 104/72 Pulse Oximetry 92 L 12/13/17 19:00 12/13/17 20:00 12/13/17 20:03 Temperature 98.0 F Pulse Rate 83 Respiratory Rate 19 22 Blood Pressure 119/66 Pulse Oximetry 96 96 12/13/17 20:17 12/13/17 20:33 12/13/17 23:58 Temperature Pulse Rate 77 79 Respiratory Rate 20 12 18 Blood Pressure Pulse Oximetry 97 12/14/17 00:00 12/14/17 04:00 12/14/17 04:17 Temperature 98.5 F Pulse Rate 95 H 90 87 Respiratory Rate 21 21 20 Blood Pressure 135/75 143/80 H Pulse Oximetry 95 92 L 12/14/17 08:00 12/14/17 08:04 12/14/17 11:13 Temperature 97.9 F Pulse Rate 84 76 80 Respiratory Rate 35 H 24 22 Blood Pressure 138/92 H Pulse Oximetry 92 L 93 L 12/14/17 12:00 Temperature 98.4 F Pulse Rate 82 Respiratory Rate 32 H Blood Pressure 150/79 H Pulse Oximetry 96 Intake & Output 12/13/17 12/14/17 12/14/17 18:59 06:59 18:59 Intake Total 2455 / 2455 2335 / 2335 Output Total 790 / 790 2024 Balance 1665 / 1665 310 / 310 Weight 87 kg 89 kg Intake: IV 1255 / 1255 1855 / 1855 NS + KCl 20 mEq Inj 1,000 ML @ 1000 / 1000 1600 / 1600 100 mls/hr IV.CONT .Q10H KATHRYN Rx #:[id number] Thiamine Inj 500 MG In NS Inj 255 / 255 255 / 255 250 ML @ 62.5 mls/hr IV.SIG Q8H KATHRYN Rx#:[id number] Oral 1200 / 1200 480 / 480 Output: Urine 500 / 500 2024 Urine Amount (Catheter) 250 / 250 Indwelling Urethral Catheter 250 / 250 Wound Drainage 40 / 40 Neck 40 / 40 Other: # Voids 1 4 Date of Last Bowel Movement 12/12/17 12/12/17 # Bowel Movements 0 0 Results Procedures completed during hospitalization: C3-4 C4-5 and C5-C6 anterior cervical discectomy, interbody arthrodesis using peek cage filled with autologous bone graft, C3 4, C4 5 C5-6 instrumented fixation using simplicity plate and screws Labs on day of discharge: Labs from last 24 hours 12/14/17 12/14/17 12/14/17 02:45 02:45 02:45 WBC 19.1 H D RBC 3.71 L Hgb 12.7 L Hct 39.4 MCV 106.3 H D MCH 34.3 H MCHC 32.3 RDW 14.5 Plt Count 298 MPV 8.6 PT 10.0 INR 1.0 Sodium 142 Potassium 4.7 Chloride 108 H Carbon Dioxide 28.6 Anion Gap 5 BUN 17 Creatinine 0.86 Estimated GFR 85 L Random Glucose 121 H Calcium 8.9 D Total Bilirubin 0.3 AST 16 ALT 17 Alkaline Phosphatase 38 L Total Protein 6.7 Albumin 3.3 L - Impressions ITS Impressions Cervical Spine X-Ray 12/12/17 00:00 CONCLUSION: Postsurgical changes as above. Videofluoroscopic Swallow 12/14/17 00:00 CONCLUSION: Negative examination. Discharge Plan - Discharge Disposition Patient Disposition: [facility] Inpatient - Discharge Condition Condition: Stable - Discharge Order Discharge Orders: Discharge Order (Routine); Ordered 12/14/17 Ordered By: Radha Cid - Physicians Team Primary Care Provider: Gamaliel Guerra Attending Provider: Hakan Joyner Other Providers: Sammy Ward MD - Rxs /Orders / Referrals /Forms Prescriptions: New hydrocodone-acetaminophen 10-325 mg Tablet 1 tab PO Q4H PRN (Reason: Pain Scale 6 To 10) 3 Days Qty: 15 RF: 0 Continue aspirin [Aspirin Low Dose] 81 mg Tablet,Delayed Release (Dr/Ec) 81 mg PO DAILY atorvastatin 10 mg Tablet 10 mg PO 3XW cholecalciferol (vitamin D3) [Vitamin D3] 1,000 unit Capsule 1,000 unit PO DAILY ezetimibe 10 mg Tablet 10 mg PO DAILY tamsulosin [Flomax] 0.4 mg Capsule,Extended Release 24hr 0.4 mg PO HS umeclidinium-vilanterol [Anoro Ellipta] 62.5-25 mcg/actuation Blister With Device 1 inh INHALATION Q24H Referrals: Gamaliel Guerra DO [Primary Care Provider] - See Instructions - Discharge Instructions Patient Printed Instructions: Laminectomy (DC)
[2017-12-14] MEDS: Umeclindinium 62.5 MCG/Vilanterol 25 MCG Inhaler INH SCH (16:08)
[2017-12-14 19:18] VITALS: BP 137/89; PULSE 80; RESP 23; TEMP 98.7; O2SAT 94
[2017-12-15] MEDS ORDERED: Thiamine Inj 500 MG in Sodium Chlor 0.9% Inj 500 ML IV.SIG SCH (08:00)
== END 2017-12-14 17:00 ==
LOC: HSDC 08:12 → HSDI 15:46 → N03 17:16
PROVIDERS: ADMIT Neurological Surgery; ATTEND Neurological Surgery